=== PATIENT | male | born 1990 | race African-American/Black ===

== ENCOUNTER 2023-04-23 11:48 | Emergency (ER) | payer SELFPAY ==
[~2023-04-23] VITALS: Ht 188 cm; Wt 79.0 kg
[2023-04-23 11:52] VITALS: BP 126/86; PULSE 116; RESP 20; TEMP 98.5; O2SAT 99
[2023-04-23] MEDS ORDERED: CYCL10TA21 MT (12:44)
[2023-04-23] MEDS ORDERED: HYDR-4009 MT (12:45)
== END 2023-04-23 13:43 | disposition home or self-care (01) ==
LOC: ER 11:48
DX: M50.20 Other cervical disc displacement, unspecified cervical region (principal); Z98.890 Other specified postprocedural states; V98.8XXA Other specified transport accidents, initial encounter; Y93.89 Activity, other specified; Y92.89 Other specified places as the place of occurrence of the external cause; Y99.8 Other external cause status
CPT/HCPCS: 99283